=== PATIENT | male | born 1990 | race Caucasian/White ===

== ENCOUNTER 2016-05-12 13:33 | Emergency (ER) | payer BC ==
[~2016-05-12] VITALS: Ht 172.7 cm; Wt 68.0 kg
[2016-05-12 13:59] VITALS: BP 121/67; PULSE 75; RESP 18; TEMP 98.3; O2SAT 100
--- NOTE | 2016-05-12 14:39 | NUR ---
Placed in room 5 . Placed on cardiac/vascular sonographer, blood pressure machine and pulse oximeter. To gown for exam. Side rails up. Report given to Arnie.
--- NOTE | 2016-05-12 14:45 | NUR ---
Dr Brown at bedside examining patient
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
[2016-05-12] MEDS ORDERED: IBUPROFEN 600 MG TABLET PO ONE (15:00)
[2016-05-12] MEDS ORDERED: ACETAMINOPHEN 325 MG TABLET PO ONE (15:00)
--- NOTE | 2016-05-12 15:00 | NUR ---
Pt off the unit for X-ray
[2016-05-12] MEDS ORDERED: HYDROcodone/ACETAMIN 5-325 MG TAB (NORCO/ VICODIN) PO ONE (15:30)
[2016-05-12] MEDS ORDERED: ONDANSETRON 4 MG ODT TAB PO ONE (15:30)
[2016-05-12 17:05] LABS: BILIRUBIN,URINE NEGATIVE (NEGATIVE); BLOOD, URINE NEGATIVE (NEGATIVE); CLARITY/URINE CLEAR (CLEAR); COLOR,URINE YELLOW (YELLOW); GLUCOSE,URINE NEGATIVE (NEGATIVE); KETONES,URINE NEGATIVE (NEGATIVE); LEUKOCYTE ESTERASE ,URINE NEGATIVE (NEGATIVE); NITRITE, URINE NEGATIVE (NEGATIVE); PROTEIN URINE NEGATIVE (NEGATIVE); UROBILINOGEN,URINE 0.2 (0.2-1.0)
[2016-05-12 17:31] LABS: BARBITURATE, URINE NEGATIVE (NEG <=200); METHAMPHETAMINES SCREEN,URINE NEGATIVE (NEG <=500); URINE AMPHETAMINE NEGATIVE (NEG <=500); URINE METHADONE NEGATIVE (NEG <=200)
[2016-05-12 17:32] LABS: BENZODIAZEPINE, URINE POSITIVE (NEG <=150); CANNABINOID, URINE POSITIVE (NEG <=50); COCAINE, URINE NEGATIVE (NEG <=150); OPIATE, URINE NEGATIVE (NEG <=100); PHENCYCLIDINE SCREEN,URINE NEGATIVE (NEG <=25); UR TRICYCLIC ANTIDEPRESSANTS NEGATIVE (NEG <=300); URINE OXYCODONE SCREEN NEGATIVE (NEG <=100); URINE PROPOXYPHENE SCREEN NEGATIVE (NEG <=300)
[2016-05-12 17:45] VITALS: BP 118/56; PULSE 75; RESP 18; TEMP 98.3; O2SAT 100
[2016-05-12] MEDS ORDERED: KETOROLAC TROMETHAMINE 60 MG/2 ML VIAL IM ONE (17:45)
--- NOTE | 2016-05-12 17:45 | NUR ---
Patient given written and verbal discharge instructions and verbalizes understanding. ER MD discussed with patient the results and treatment provided. Given copies of tests performed in ER. Patient in stable condition. ID arm band removed. Rx of norco, ibuprofen, zofran, augmentin given. Patient educated on pain management and to follow up with PMD. Pain Scale 0/10. Opportunity for questions provided and answered.
== END 2016-05-12 17:45 | disposition home or self-care (01) ==
LOC: SED 13:33
DX: S16.1XXA Strain of muscle, fascia and tendon at neck level, initial encounter (principal); S39.012A Strain of muscle, fascia and tendon of lower back, initial encounter; R04.0 Epistaxis; R51 Headache; V43.51XA Car driver injured in collision with sport utility vehicle in traffic accident, initial encounter; Y93.89 Activity, other specified; Y99.8 Other external cause status; Y92.89 Other specified places as the place of occurrence of the external cause
CPT/HCPCS: 70160; 70450; 72110; 72125; 80307; 81003; 96372; 99285; J1885; Q0162